=== PATIENT | female | born 1975 | race Caucasian/White ===

== ENCOUNTER 2016-09-18 13:05 | Emergency (ER) | payer OTHER | END 2016-09-18 13:38 | disposition home or self-care (01) | LOC: ER1 13:05 | DX: S02.5XXA Fracture of tooth (traumatic), initial encounter for closed fracture (principal); K04.7 Periapical abscess without sinus; F17.210 Nicotine dependence, cigarettes, uncomplicated; X58.XXXA Exposure to other specified factors, initial encounter | CPT/HCPCS: 99282 ==

== ENCOUNTER 2016-09-19 12:27 | Emergency (ER) | payer OTHER | END 2016-09-19 14:20 | disposition home or self-care (01) | LOC: ER1 12:27 | DX: K05.219 Aggressive periodontitis, localized, unspecified severity (principal); K02.9 Dental caries, unspecified; F17.210 Nicotine dependence, cigarettes, uncomplicated; M06.9 Rheumatoid arthritis, unspecified; M10.9 Gout, unspecified | CPT/HCPCS: 99282 ==

== ENCOUNTER 2021-08-14 13:07 | Emergency (ER) | payer OTHER ==
[~2021-08-14 13:07] MED LIST: KENALOG OINT 0.15 GM TOP; NAPROSYN500 MG PO; PREDNISONE 50 M50 MG PO
[2021-08-14] MEDS ORDERED: CYCLOBENZAPRINE10 MG PO (15:21)
[2021-08-14] MEDS ORDERED: IBUPROFEN600 MG PO (15:21)
== END 2021-08-14 16:11 | disposition home or self-care (01) ==
LOC: ER1 13:07
DX: S89.92XA Unspecified injury of left lower leg, initial encounter (principal); X50.0XXA Overexertion from strenuous movement or load, initial encounter
CPT/HCPCS: 73562; 96372; 99283; J1885